=== PATIENT | female | born 1950 | race Caucasian/White ===

== ENCOUNTER 2020-08-16 10:17 | Day surgery (SDC) | payer MEDICARE ==
[2020-08-25] MEDS ORDERED: VIT C-ROSE HIP500 MG PO (16:13)
[2020-08-25] MEDS ORDERED: Vitamin B Comple1 EA PO (16:13)
== END 2020-08-17 02:18 | disposition home or self-care (01) ==
LOC: MOI US 10:17
DX: C50.911 Malignant neoplasm of unspecified site of right female breast (principal); Z17.0 Estrogen receptor positive status [ER+]
CPT/HCPCS: 19083; 77065; 88305; 88341; 88342; 88360; A4648

== ENCOUNTER 2020-08-27 09:28 | Day surgery (SDC) | payer MEDICARE ==
[~2020-08-27 09:28] MED LIST: VIT C-ROSE HIP500 MG PO; Vitamin B Comple1 EA PO
== END 2020-08-27 23:39 | disposition home or self-care (01) ==
LOC: MOI US 09:28
DX: C50.411 Malignant neoplasm of upper-outer quadrant of right female breast (principal); Z17.0 Estrogen receptor positive status [ER+]
CPT/HCPCS: 19285; 77065; A4648

== ENCOUNTER 2020-08-31 08:00 | Day surgery (SDC) | payer MEDICARE ==
[~2020-08-31] VITALS: Ht 157.5 cm; Wt 52.0 kg
--- NOTE | 2020-08-31 14:24 | NUR ---
08/31/20 1424 Stephy Macedo. SPECIMEN DELIVERED TO RADIOLOGY AND THEN TO PATHOLOGY AT 1410.GERBER MACEDO RN
--- NOTE | 2020-08-31 16:18 | NUR ---
Discharge instructions reviewed with patient. Patient verbalizes understanding. Copy given to patient to take home. ICE PACK PLACED. DERMABOND IN PLACE. NO BINDER ON PER ORDER. PT AGREEABLE TO TAKE NORCO ORDERED AFTER TOLERATING CRACKERS AND WATER. PT UP TO EDGE OF BED TO GET DRESSED. Discharged via wheelchair to private car for ride home.
== END 2020-08-31 16:24 | disposition home or self-care (01) ==
LOC: ORSCMMR 08:00 → NM 08:00 → ORSCMMR 08:01 → NM 09:00 → ORSCMMR 16:24
PROVIDERS: Surgery
PROC: 0HBT0ZZ Excision of Right Breast, Open Approach (ICD-10-PCS; principal; 2020-08-31 12:45)
PROC: 07B50ZX Excision of Right Axillary Lymphatic, Open Approach, Diagnostic (ICD-10-PCS; principal; 2020-08-31 12:45)
DX: C50.411 Malignant neoplasm of upper-outer quadrant of right female breast (principal); Z17.0 Estrogen receptor positive status [ER+]; D36.0 Benign neoplasm of lymph nodes; J44.9 Chronic obstructive pulmonary disease, unspecified; F17.210 Nicotine dependence, cigarettes, uncomplicated
CPT/HCPCS: 38792; 76098; 88305; 88307; 88341; 88342; 88360; A9270; A9520; J0171; J0690; J1100; J1885; J2250; J2405; J2704; J3010; J7120; Q9968

== ENCOUNTER 2022-03-23 11:49 | Day surgery (SDC) | payer OTHER ==
[~2022-03-23] VITALS: Ht 157.5 cm; Wt 57.6 kg
--- NOTE | 2022-03-23 13:19 | NUR ---
03/23/22 1319 Annalise Cooper AT 1312 PLEDGET AT 1314
--- NOTE | 2022-03-23 14:56 | NUR ---
03/23/22 1456 Rasheeda Araya5: PATIENT REFUSED ANY PO FLUIDS OR SNACK, BUT STATED NO NAUSEA. EXPRESSES READINESS TO GO HOME.
== END 2022-03-23 14:54 | disposition home or self-care (01) ==
LOC: ORSCSDS 11:49
PROVIDERS: Ophthalmology
PROC: 08DJ3ZZ Extraction of Right Lens, Percutaneous Approach (ICD-10-PCS; principal; 2022-03-23 13:30)
DX: H25.11 Age-related nuclear cataract, right eye (principal); J44.9 Chronic obstructive pulmonary disease, unspecified; F32.A Depression, unspecified; E78.5 Hyperlipidemia, unspecified; H18.519 Endothelial corneal dystrophy, unspecified eye; K21.9 Gastro-esophageal reflux disease without esophagitis; R01.1 Cardiac murmur, unspecified; F17.210 Nicotine dependence, cigarettes, uncomplicated; Z79.899 Other long term (current) drug therapy
CPT/HCPCS: J2001; J2250; J3010; J3301; J7040; V2632

== ENCOUNTER 2023-09-07 10:42 | Day surgery (SDC) | payer OTHER ==
[~2023-09-07] VITALS: Ht 157.5 cm; Wt 56.0 kg
[2023-09-07] MEDS ORDERED: CeFAZolin Sodium 2,000 MG VIAL ONE (10:45)
[2023-09-07] MEDS ORDERED: Lactated Ringer's 1,000 ML IV ONE ×2 (10:46→11:24)
[2023-09-07] MEDS ORDERED: NS 50 ML IV ONE (10:46)
[2023-09-07] MEDS ORDERED: propofoL 40 ML IV ONE (11:33)
[2023-09-07] MEDS ORDERED: propofoL 20 ML IV ONE (11:54)
[2023-09-07] MEDS ORDERED: Dexamethasone Sod Phos 10 MG/ML 1ML VIAL ONE (11:55)
[2023-09-07] MEDS ORDERED: Lidocaine HCl 2% 10 ML SDA INJ ONE (12:12)
[2023-09-07] MEDS ORDERED: Ropivacaine 0.5% HCl/Pf 5 MG/ML 20ML VIAL INJ ONE ×2 (12:12)
[2023-09-07] MEDS ORDERED: Ondansetron HCl 2 MG / ML 2ML Vial ONE (12:13)
[2023-09-07 13:57] VITALS: BP 142/84
== END 2023-09-07 14:33 | disposition home or self-care (01) ==
LOC: ORSCSDS 10:42
PROVIDERS: Podiatrist Foot & Ankle Surgery
PROC: 0QSR04Z Reposition Left Toe Phalanx with Internal Fixation Device, Open Approach (ICD-10-PCS; principal; 2023-09-07 12:00)
PROC: 0QSP04Z Reposition Left Metatarsal with Internal Fixation Device, Open Approach (ICD-10-PCS; principal; 2023-09-07 12:00)
DX: M20.12 Hallux valgus (acquired), left foot (principal); M77.42 Metatarsalgia, left foot; M77.52 Other enthesopathy of left foot and ankle; J44.9 Chronic obstructive pulmonary disease, unspecified; E78.5 Hyperlipidemia, unspecified; Z85.3 Personal history of malignant neoplasm of breast; Z79.899 Other long term (current) drug therapy; Z87.891 Personal history of nicotine dependence
CPT/HCPCS: C1713; J0690; J1100; J2001; J2405; J2704; J2795; J7120

== ENCOUNTER → 2024-12-10 | Outpatient (CLI) | payer MEDICARE ==
[2024-12-10 18:10] LABS: BASOPHILS ABSOLUTE AUTO 0.03 K/mm3 (0.00-0.23); BASOPHILS PERCENT AUTO 1 % (0-2); EOSINOPHILS ABSOLUTE AUTO 0.07 K/mm3 (0.00-0.68); EOSINOPHILS PERCENT AUTO 1 % (0-6); Hematocrit 39.1 % (33.0-51.0); Hemoglobin 13.1 g/dL (11.5-16.0); IMMATURE GRAN ABSOLUTE AUTO 0.02 K/mm3 (0.00-0.10); IMMATURE GRAN PERCENT AUTO 0 % (0-1); LYMPHOCYTES ABSOLUTE AUTO 1.66 K/mm3 (0.84-5.20); LYMPHOCYTES PERCENT AUTO 34 % (21-46); MONOCYTES ABSOLUTE AUTO 0.46 K/mm3 (0.16-1.47); MONOCYTES PERCENT AUTO 10 % (4-13); Mean Corpuscular HGB Conc 33.5 g/dL (31.5-36.5); Mean Corpuscular Volume 91 fL (80-100); NEUTROPHILS ABSOLUTE AUTO 2.59 K/mm3 (1.96-9.15); NEUTROPHILS PERCENT AUTO 54 % (41-73); NRBC ABSOLUTE 0.00 K/mm3 (0.00-0.02); NRBC Auto 0.0 /100 WBC (0.0-0.2); Platelet Count 214 K/mm3 (150-400); RDW Coefficient Variation 13.8 % (11.7-14.2); RDW Standard Deviation 46.1 fL (35.1-46.3)
[2024-12-10 18:52] LABS: Alanine Aminotransfer (ALT/SGP 19 U/L (12-78); Albumin, Blood 3.8 g/dL (3.4-5.0); Albumin/Globulin Ratio 1.5 (0.8-1.8); Anion Gap 7 mmol/L (3-11); Aspartate Aminotrans (AST/SGOT 23 U/L (12-37); Bilirubin, Total 0.3 mg/dL (0.1-1.0); Blood Urea Nitrogen 14 mg/dL (8-24); CHOL/HDL RATIO 3.9; CO2, Blood 26 mmol/L (21-32); Calcium, Blood 9.3 mg/dL (8.5-10.1); Chloride, Blood 108 mmol/L (98-108); Cholesterol 207 mg/dL (50-200); Creatinine, Blood 0.71 mg/dL (0.40-1.00); Globulin, Blood 2.6 g/dL (2.2-4.0); Glucose, Blood 81 mg/dL (70-99); HDL Cholesterol 53 mg/dL (>39); LDL/HDL RATIO 2.4; Low Density Lipoprotein Chol 125 mg/dL (0-110); Potassium, Blood 3.8 mmol/L (3.5-5.5); Sodium, Blood 137 mmol/L (136-145); Total Protein, Blood 6.4 g/dL (6.4-8.2); Triglycerides 145 mg/dL (30-160); Very Low Density Lipoprot Chol 29 mg/dL (6-32)
== END ==
LOC: LAB 16:44 → LAB SHORT 16:44
PROVIDERS: Nurse Practitioner Family
DX: J44.9 Chronic obstructive pulmonary disease, unspecified (principal); E78.5 Hyperlipidemia, unspecified
CPT/HCPCS: 80053; 80061; 85025